=== PATIENT | male | born 1965 | race Caucasian/White ===

== ENCOUNTER 2017-03-15 11:29 | Emergency (ER) | payer OTHER ==
[~2017-03-15] VITALS: Ht 177.8 cm; Wt 120.0 kg
[~2017-03-15 11:29] MED LIST: ASPI-664 PO; BENA10TA48 PO; BUPR-75 PO; CARV12.579 PO; DOCU100C26 PO; FURO40TA4 PO; HYDR-3498 PO; METF1000 PO; OMEG1CAP55 PO; SIMV20TA PO; SPIR25TA PO; TERA2CAP3 PO; TRAZ50TA18 PO
[2017-03-15 11:41] VITALS: Ht 177.8 cm; Wt 120.0 kg
[2017-03-15] MEDS ORDERED: ONDANSETRON 4 MG INJ IV STA (11:52)
[2017-03-15] MEDS ORDERED: SOD CHLORIDE 0.9% 1,000 ML IV STA (11:52)
[2017-03-15 12:23] LABS: BASOPHILS % 0.4 % (0.0-2.0); EOSINOPHILS # 0.2 10^3/ul (0.0-0.5); HEMATOCRIT 42.3 % (42.0-52.0); HEMOGLOBIN 14.1 g/dl (14.0-18.0); LYMPHOCYTES # 1.9 10^3/ul (0.8-2.9); LYMPHOCYTES % 20.7 % (15.0-51.0); MEAN CORPUSCULAR HEMOGLOBIN 30.7 pg (29.0-33.0); MEAN CORPUSCULAR HGB CONC 33.3 g/dl (32.0-37.0); MEAN PLATELET VOLUME 10.5 fl (7.4-10.4); MONOCYTE # 1.1 10^3/ul (0.3-0.9); MONOCYTES % 11.5 % (0.0-11.0); NEUTROPHILS % 64.2 % (39.0-77.0); PLATELET COUNT 204 10^3/UL (140-415); RED CELL DISTRIBUTION WIDTH 12.2 % (11.5-14.5); WHITE BLOOD COUNT 9.3 10^3/ul (4.8-10.8)
[2017-03-15 12:24] LABS: PROTIME 13.2 Sec (12.2-14.2)
[2017-03-15 12:25] LABS: PARTIAL THROMBOPLASTIN TIME 29.3 Sec (25.0-35.0)
[2017-03-15 12:27] LABS: ANION GAP 14 (8-16); BLOOD UREA NITROGEN 17 mg/dl (7-20); CALCIUM 8.7 mg/dl (8.4-10.2); CARBON DIOXIDE 29 mmol/L (21-31); CHLORIDE 98 mmol/L (97-110); CREATININE 0.98 mg/dl (0.61-1.24); GLUCOSE 194 mg/dl (70-220); POTASSIUM 3.8 mmol/L (3.5-5.1); SODIUM 137 mmol/L (135-144)
[2017-03-15 12:41] LABS: TROPONIN-I < 0.012 ng/ml (0.00-0.12)
--- NOTE | 2017-03-15 13:00 | RADRPT ---
PROCEDURE: CT brain without contrast CLINICAL INDICATION: Fainted, status post fall, syncope TECHNIQUE: CT of the brain without contrast was performed on a multidetector CT scanner, with multi planar reformats. One or more of the following dose reduction techniques were used: Automated expos ure control, adjustment in mA and / or kV according to patient size, use of iterative reconstructive technique. CTDIvol = 39.6 mGy; DLP = 633.6 mGy-cm. COMPARISON: None available FINDINGS: No acute intracranial hemorrhage is identified. No extra-axial fluid collection is seen. There is no mass effect. No midline shift is identified. The ventricles/sulci are mildly enlarged compatible with volume loss. The density of the brain is unremarkable. Hurt-white differentiation is preserved. The calvarium and skull base appear intact. Mastoid air cells and imaged paranasal sinuses grossly clear. IMPRESSION: 1. No evidence of acute intracranial pathology. 2. Mild volume loss. RPTAT: VV .Jesus Castano MD, MD Date Time Electronically viewed and signed by .Jesus Castano MD, on 03/15/2017 12:59 .O/
--- NOTE | 2017-03-15 13:10 | RADRPT ---
PROCEDURE: CT face without contrast CLINICAL INDICATION: Fall, right zygomatic/maxillary trauma - injury TECHNIQUE: CT of the face without contrast was performed on a multidetector CT scanner, with multip lanar reformats. One or more of the following dose reduction techniques were used: Automated exposu re control, adjustment in mA and / or kV according to patient size, use of iterative reconstructive technique. CTDIvol = 30 mGy and DLP = 527 mGy-cm. COMPARISON: None available. FINDINGS: No fracture is identified. Orbital structures are intact. Temporomandibular joints are intact. Th ere is a small mixed sclerotic - lucent, nonaggressive appearing lesion at the right superior orbita l rim measuring up to 1.2 cm with areas of ground-glass density. This may represent a focus of fibr ous dysplasia or other benign lesion. There is minimal to mild bilateral ethmoid air cell mucosal t hickening, and trace mucosal thickening in the left maxillary sinus without fluid levels. Nasal sep sarah is noted to be mildly deviated to the right. No soft tissue hematoma, gas or radiopaque foreign body is identified. IMPRESSION: 1. No facial fracture/dislocation or orbital injury identified. 2. 1.2 cm mixed sclerotic - lucent, nonaggressive lesion in the right superior orbital rim, which m ay be fibrous dysplasia or other benign lesion. 3. Minimal - mild paranasal sinus mucosal disease described above. RPTAT: VV .Jesus Castano MD, Date Time Electronically viewed and signed by .Jesus Castano MD, on 03/15/2017 13:09 .O/
--- NOTE | 2017-03-15 13:28 | RADRPT ---
PROCEDURE: XR Chest. CLINICAL INDICATION: Patient experiencing Syncope. TECHNIQUE: PA and Lateral views of the chest were obtained. COMPARISON: Chest x-ray 07/07/2016 FINDINGS: Redemonstrated is a left chest wall dual lead AICD device with lead tips stable in position, allowin g for slight differences in projection. A single mediasternotomy wire, mediastinal clips, and clips projecting over the left upper lung are also stable in positions. The cardiac silhouette remains mildly enlarged. There is atherosclerosis of the thoracic aorta. There is persistent apparent elevation of left hemidiaphragm. Ill-defined opacities at the left lung base are slightly decreased and may represent atelectasis, sc arring, small left pleural effusion, and / or consolidation. No pneumothorax is seen. There is no significant pulmonary vascular congestion. There are degenerative changes of the visualized spine. IMPRESSION: 1. Mild cardiomegaly, unchanged. 2. Ill-defined opacities at the left lung base are slightly decreased and may represent atelectasis , scarring, small left pleural effusion, and / or consolidation. 3. Stable position of left chest wall dual lead AICD device. RPTAT: PP Physician Anabell Date Time Electronically viewed and signed by Physician Anabell on 03/15/2017 13:28 PB/
[2017-03-15] MEDS ORDERED: LEVO500T72 PO (14:18)
[2017-03-15] MEDS ORDERED: ONDA4TAB11 PO (15:00)
[2017-03-15 15:39] VITALS: BP 150/89; PULSE 65; RESP 16; TEMP 97.9
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
== END 2017-03-15 18:24 | disposition home or self-care (01) ==
LOC: E/R 11:29
DX: S09.90XA Unspecified injury of head, initial encounter (principal); S00.83XA Contusion of other part of head, initial encounter; I10 Essential (primary) hypertension; J44.9 Chronic obstructive pulmonary disease, unspecified; I50.9 Heart failure, unspecified; F17.210 Nicotine dependence, cigarettes, uncomplicated; W01.198A Fall on same level from slipping, tripping and stumbling with subsequent striking against other object, initial encounter; Y92.9 Unspecified place or not applicable; Z95.0 Presence of cardiac pacemaker; Z79.82 Long term (current) use of aspirin; Z79.84 Long term (current) use of oral hypoglycemic drugs
CPT/HCPCS: 36415; 70450; 70486; 71010; 80048; 84484; 85025; 85610; 85730; 93005; 96374; J2405; J7030; Z7502

== ENCOUNTER 2017-08-21 23:44 | Inpatient (IN) | END 2017-08-26 13:10 | disposition home or self-care (01) | DRG 194 ==

== ENCOUNTER 2018-01-13 15:08 | Inpatient (IN) | END 2018-01-20 16:30 | disposition home or self-care (01) | DRG 291 ==